=== PATIENT | female | born 1935 | race African-American/Black ===

== ENCOUNTER → 2016-12-06 | Outpatient (CLI) | payer MEDICARE, OTHER ==
[~2016-12-06] MED LIST: ASPIRINEC PO; CELEBREX PO; COREG6.25 MG PO; FERROUS SULFATE PO; LASIX PO; LISINOPRIL PO; LISINOPRIL20 MG PO; METOPROLOL SUCC25 MG PO; PLAVIX PO; PRILOSEC PO; TUSSIONEX PENN473 ML PO; ZITHROMAX PO; ZOCOR PO
--- NOTE | ~2016-12-06 | MY30 ---
[facility] A Service of [facility] RADIOLOGY TEXT RESULTS PATIENT: CLAUDETTE DONATO LOCATION: [facility] : 31 UNIT #: [id number] AGE: [address]: Diana Carmona MD SEX: F ORDER DR: [id number] [address] [address] [id number] O MR#: [id number] Acc #: [id number] NAME: CLAUDETTE DONATO : 1935 SEX: F STUDY DATE/TIME: 12/06/2016 12:09 UNIT: [facility] ROOM: STUDY DESCRIPTION: MY SCREEN ABENA BILAT DIGITAL Attending Physician: Diana Carmona M.D. Referring Physician: Diana Carmona M.D. Ordering Physician: Diana Carmona M.D. Primary Care Physician: Diana Carmona M.D. MEDICAL IMAGING REPORT This report is preliminary unless electronic signature is present. EXAM Bilateral digital screening mammogram with CAD 12/06/2016 HISTORY 81-year-old female with family history of breast cancer in her daughter. No personal history of breast cancer and no current complaints. COMPARISON Bilateral screening mammogram 09/27/2014, 10/30/2012, 10/20/2011. TECHNIQUE CC and MLO views were obtained of each breast utilizing digital technique and reviewed a FDA-approved CAD device. FINDINGS Scattered fibroglandular densities are present bilaterally. Fibronodular density in the upper outer right breast central third unchanged, in keeping with a benign finding. Left breast subareolar nodule near the 3 o'clock axis is also unchanged, in keeping with a benign finding. No suspicious clustered microcalcification. No architectural distortion. IMPRESSION 1. BIRADS 2. Benign findings. Routine bilateral screening mammogram is recommended in 1 year. BIRADS: 2 Benign Finding. Patients over the age of 40 are entered into a reminder system with target due date for the next mammogram. A result letter will also be sent to the patient. [facility] A Service [facility] RADIOLOGY TEXT RESULTS PATIENT: CLAUDETTE DONATO LOCATION: [facility] : 31 UNIT #: [id number] AGE: [address]: Diana Carmona MD SEX: F ORDER DR: Dictated by... Yudy Shaw M.D. THIS IS AN ELECTRONICALLY VERIFIED REPORT Yudy Shaw M.D. at 12/07/2016 1:11 PM LLH/kayla TD: 12/06/2016 20:59 JOB #: [id number] MEDICAL IMAGING REPORT Page 1 of 1
== END | disposition home or self-care (01) ==
LOC: CWCC 11-29 11:00 → SMAM 11:25 → CWCC 11:30 → SMAM 11:30
DX: Z12.31 Encounter for screening mammogram for malignant neoplasm of breast (principal); Z80.3 Family history of malignant neoplasm of breast
CPT/HCPCS: G0202